=== PATIENT | male | born 1980 | race African-American/Black ===

== ENCOUNTER 2017-02-16 05:15 | Day surgery (SDC) | payer OTHER ==
[2017-02-01 17:55] VITALS: BMI 27.8
--- NOTE | 2017-02-16 08:30 | HP ---
Satellite [facility] - Chief Complaint Chief Complaint: right knee pain - Past Medical History Allergies/Adverse Reactions: Allergies Allergy/AdvReac Type Severity Reaction Status Date / Time No Known Drug Allergies Allergy Verified 02/16/17 07:56 - Current Medications Current Medications: Home Medications Medication Instructions Recorded Ibuprofen [Motrin -] 600 mg PO PRN PRN 02/01/17 Oxycodone HCl/Acetaminophen 1 - 2 tab PO Q6H #40 tab MDD 8 02/16/17 [Percocet 5-325 mg Tablet -] Satellite Physical Exam - Physical Examination Vital Signs: Vital Signs Period Temp Pulse Resp BP Sys/Mireles Pulse Ox Last 24 Hr 98.7 F 60 18 111/58 98 General Appearance: Well Nourished, Well Developed, Alert & Oriented x3 ENT: Clear Lung: Normal air movement Heart: Regular rate & rhythm Extremities: Other (right knee- + swelling, + ttp, deecr rom, + mcmurrays, nvi MRI + lmt, OA) Neurological: Intact, Alert, Oriented Satellite Impression/Plan - Impression/Plan Impression: right knee internal derangement Operative Procedure: right knee arthroscopy Date to be Performed: 02/16/17
[2017-02-16] MEDS ORDERED: oxyCODONE HCL 5 MG TABLET PO PRN (08:56)
[2017-02-16] MEDS ORDERED: ONDANSETRON 4 MG/2 ML VIAL IVPUSH PRN (08:56)
[2017-02-16] MEDS ORDERED: LACTATED RINGERS SOLUTION 1,000 ML IV SCH (09:00)
[2017-02-16] MEDS ORDERED: KETOROLAC TROMETHAMINE 30 MG/1 ML VIAL ONE (09:17)
[2017-02-16] MEDS ORDERED: MIDAZOLAM HCL 2 MG/2 ML SINGLE DOSE VIAL ONE (09:17)
[2017-02-16] MEDS ORDERED: ceFAZolin SODIUM 1 GM VIAL ONE (09:17)
[2017-02-16] MEDS ORDERED: PROPOFOL 20 ML ONE (09:17)
[2017-02-16] MEDS ORDERED: LIDOCAINE HCL/PF 2% SDV 5ML VIAL ONE (09:19)
[2017-02-16] MEDS ORDERED: LIDOCAINE 1%/EPI 1:100000 (50 ML MULTI DOSE VIAL) ONE (09:20)
[2017-02-16] MEDS ORDERED: BUPIVACAINE HCL/PF 0.5% (5MG/ML) 10 ML VIAL ONE (09:20)
[2017-02-16] MEDS ORDERED: LIDOCAINE 1%/EPI 1:100000 (20 ML MULTI DOSE VIAL) INF ONE (09:43)
[2017-02-16] MEDS ORDERED: BUPIVACAINE HCL/PF 0.5% (5MG/ML) 10 ML VIAL IJ ONE (09:43)
--- NOTE | 2017-02-16 09:55 | OP ---
Operative Note - Note: Operative Date: 02/16/17 ([facility]) Pre-Operative Diagnosis: right knee internal derangement Operation: right knee arthroscopy with PLM Findings: right knee LMT, partial ACL tear Post-Operative Diagnosis: Same as Pre-op Surgeon: Evan Kilpatrick Anesthesiologist/IRRIGATION SUPERVISOR: Bernie Victoria Anesthesia: General, Local Specimens Removed: shavings Estimated Blood Loss (mls): 5 Operative Report Dictated: Yes
[2017-02-16 11:23] VITALS: TEMP 97.6
[2017-02-16 13:34] VITALS: BP 112/62; PULSE 54
--- NOTE | 2017-02-17 13:43 | PATH ---
Surgical Pathology Report Patient Name: AYDIN NIELSON [facility]. Rec. #: [id number] /Age/Gender: 1980 (Age: 36) / M Account: [id number] Location: [facility] SUR[facility]ICAL Taken: 02/16/2017 Received: 02/16/2017 Reported: 02/17/2017 Physicians: Evan Kilpatrick M.D. Specimen(s) Received SHAVINGS RIGHT KNEE Clinical History Right knee lateral tear Final Diagnosis SOFT TISSUE, RIGHT KNEE, ARTHROSCOPIC SHAVINGS: SYNOVIUM AND FIBROCARTILAGE WITH MYXOHYALINE DEGENERATION. Electronically Signed Richard Hanks M.D. Gross Description Received in formalin, labeled "right knee shavings" is a 3.4 x 2.6 x 0.3 cm aggregate of lombardo-yellow soft tissue fragments. A warehouse representative portion is submitted in one cassette. /02/16/201702/16/2017
--- NOTE | 2017-02-21 12:04 | OP ---
DATE OF OPERATION: 02/16/2017 PREOPERATIVE DIAGNOSIS: Internal derangement, right knee. POSTOPERATIVE DIAGNOSIS: Internal derangement, right knee. PROCEDURE: Arthroscopy, right knee, with partial lateral meniscectomy. SURGICAL ATTENDING: Evan Kilpatrick MD ANESTHESIA: General with LMA. CLOSURE: Nylon -0. COMPLICATIONS: None. CONDITION: To recovery room in stable condition. DESCRIPTION OF OPERATIVE PROCEDURE: Patient taken to the operating room on February 16, 2017. General anesthesia with LMA was administered by the anesthesiologist. Right lower extremity was prepped and draped in the usual sterile fashion. The superolateral and medial and lateral infrapatellar portal sites were infiltrated with 1% Xylocaine with epinephrine. Superolateral portal was made with a 15 blade, blunt trocar. Knee was aspirated, inflated with a cocktail of 10 mL of 1% Xylocaine, 10 mL of 0.5% Marcaine, 20 mL of arthroscopic saline. Medial and lateral infrapatellar portals were then made with a 15 blade, blunt trocar. Scope was placed in the lateral infrapatellar portal and up to the suprapatellar pouch. Pouch was visualized to be clean. The medial and lateral gutters were visualized to be clean. The undersurface of the patella and trochlea were visualized to be intact. With valgus stress on the knee, the medial compartment was entered. Medial meniscus visualized, probed, found to be intact. Medial femoral condyle was probed and found to be intact as was medial tibial plateau. In a figure-4 position, the lateral compartment was entered. Lateral meniscus was found to have an anterior horn tear. This was debrided back to smooth stable meniscal tissue using a meniscal blade and arthroscopic shaver. The lateral femoral condyle was run and found to be intact as was the lateral tibial plateau. At 90 degrees, the notch was visualized. The ACL was found to have a high-grade partial-thickness tear, but its posterior fibers were still intact. The PCL was intact. The fluid was drained from the knee. Portals were closed with -0 nylon. Prior to closure, 20 mL of 0.5% Marcaine was infused through the outflow portal prior to pulling the trocar. Postoperative exam of the knee revealed a stable knee with a negative Juan Jose, negative anterior and posterior drawer, perhaps maybe a 1+ pivot shift, but that is it. A sterile pressure dressing was placed on the knee. Patient awakened from anesthesia and transferred to recovery in stable condition. No complications. Estimated blood loss negligible. EVAN KILPATRICK M.D. MAGALY/[id number]
== END 2017-02-16 13:15 | disposition home or self-care (01) ==
LOC: JASU-SURG 05:15
PROVIDERS: ATTEND Orthopaedic Surgery
PROC: 0SBC4ZZ Excision of Right Knee Joint, Percutaneous Endoscopic Approach (ICD-10-PCS; principal; 2017-02-16 08:45)
DX: M23.241 Derangement of anterior horn of lateral meniscus due to old tear or injury, right knee (principal)
CPT/HCPCS: 88304-TC; 94760